=== PATIENT | female | born 1995 | race Hispanic/Latino ===

== ENCOUNTER 2017-10-26 17:09 | Emergency (ER) | payer OTHER, MEDICAID, SELFPAY ==
[2017-10-26 17:27] VITALS: BP 106/61; PULSE 94; RESP 20; TEMP 37.2; O2SAT 98
[2017-10-26 17:53] LABS: Appearance Urine UA CLEAR; Bilirubin Urine UA NEGATIVE (NEGATIVE); Color Urine UA YELLOW; Glucose Urine UA NEGATIVE (Normal); Ketones Urine UA NEGATIVE (NEGATIVE); Leukocyte Esterase Urine UA NEGATIVE (NEGATIVE); Nitrite Urine UA Negative (Negative); Occult Blood Urine UA 3+ (Negative); Protein Urine UA NEGATIVE (Negative); Specific Gravity Urine UA 1.025 (1.000-1.035); Urobilinogen Urine UA 0.2 E.U./dL (0.2)
[2017-10-26 18:04] LABS: RBC Urine 1-5/HPF (0-5/HPF)
[2017-10-26 18:05] LABS: Amorphous Sediment Urine 2+; Bacteria Urine Occasional (0-1); Culture Indicated Urine Specimen Cultured; Squamous Epithelial Cell Urine 1-5 /HPF; WBC Urine 1-5/HPF (0-5/HPF)
--- NOTE | 2017-10-26 18:22 | DI.US.S_ITS ---
PROCEDURE: US OB <= 14 WEEKS FETUS INDICATIONS: vaginal bleeding 6 weeks . OUTSIDE/PRIOR DATING DATA: Last menstrual period (LMP): Unknown. LMP-based estimated date of delivery (SANTOS): Not applicable.. First dating scan (date and location): [facility], 10/26/17 (current exam used as first dating scan rather than comparison of 10/20/2017, as the comparison scan is indeterminate). Estimated date of delivery (SANTOS) from first dating scan: 06/20/18. TECHNIQUE: Real-time scanning was performed of the fetus and maternal pelvic organs, with image documentation. Endovaginal scanning was also performed to better visualize the fetus and maternal ovaries. COMPARISON: [facility], US, US OB < 14 WEEKS + OB TRANSVAG, 10/20/2017, 16:25. FINDINGS: Embryo: An intrauterine gestational sac is identified and measures 1.3 x 1.5 x 1.0 cm, for a mean gestational sac diameter of 1.3 cm (equivalent to 6 weeks 1 day). A yolk sac is identified. cardiac activity was not identified, but this remains an early exam. There is a 1.6 x 1.0 x 0.8 cm area of hypoechogenicity consistent with subchorionic hemorrhage. Measurement variability in dating: +/- 4 weeks by LMP, +/- 7 days by mean sac diameter (use before 6 weeks gestation if crown-rump length not able to be measured), +/- 5 days by crown-rump length (up to 8 weeks 6 days gestation), +/- 7 days by crown-rump length (up to 13 weeks 6 days gestation). Maternal organs: Ovaries are not well-seen on this exam. Limited images through the kidneys demonstrate no hydronephrosis. IMPRESSION: #1. Single intrauterine demonstrating a mean gestational sac diameter of 1.3 cm (equivalent to a composite gestational age of 6 weeks 1 day). A yolk sac is identified. heart beat was not identified on today's exam, but this is not unexpected given the early gestational age. Recommend continued followup pelvic ultrasound and correlation with beta-hCG levels. #2. 1.5 cm subchorionic hemorrhage, new from 10/20/17. These findings were discussed by the french comber with the ordering provider Dr. Allan at the time of the exam. Dictated by: Morales Weiner M.D. on 10/26/2017 at 20:48 Approved by: Morales Weiner M.D. on 10/26/2017 at 21:00
[2017-10-26 18:29] VITALS: BP 108/61; PULSE 76; RESP 16; TEMP 36.5; O2SAT 100
--- NOTE | 2017-10-26 18:42 | ED.PREGNANCY ---
HPI - General Chief complaint: Vaginal Bleeding Stated complaint: 6 WKS ,CRAMPING AND BLEEDING,ARM NUMBNESS Time Seen by Provider: 10/26/17 18:08 Source: patient Mode of arrival: ambulatory Limitations: no limitations History of Present Illness HPI Narrative: Patient is a 22-year-old female presents with vaginal bleeding. She says she is about 6-7 weeks . She was having some mild spotting for the last week on only when she would wipe. However the bleeding has come more today. This morning she was a little dizzy and lightheaded she never passed out she started feeling better. However the bleeding got the more heavy today. She is a She was seen at [facility] already for this . MD Complaint: abdominal pain and vaginal bleeding Patient : Yes Related Data Previous Rx's Medication Instructions Recorded amoxicillin 500 mg PO TID 5 Days #15 cap 10/26/17 Allergies Allergy/AdvReac Type Severity Reaction Status Date / Time No Known Drug Allergies Allergy Verified 10/26/17 17:33 Review of Systems Review of Systems All systems reviewed & are unremarkable except as noted in HPI and below Constitutional Denies chills, Denies fever(s), Denies lethargy and Denies weakness Cardiovascular Denies chest pain, Denies leg edema, Reports lightheadedness, Denies palpitations and Denies dyspnea Respiratory Denies cough and Denies dyspnea Gastrointestinal Gastrointestinal: Reports abdominal pain and Denies vomiting Genitourinary Reports as per HPI and Reports abnormal vaginal bleeding Musculoskeletal Denies back pain, Denies muscle weakness, Denies numbness and Denies tingling Integumentary/Breasts Denies pruritus, Denies erythema, Denies rash and Denies wounds Neurologic Denies numbness, Denies tingling and Denies weakness Endocrine Denies palpitations Hematologic/Lymphatic Denies easy bruising PMFSH - Past Medical History Medical history: Reports no medical history Surgical history: Reports no surgical history Patient : Yes Family history: Reports no significant family history Exam Initial Vital Signs Initial Vital Signs: Vital Signs Temperature 99.0 F 10/26/17 17:27 Pulse Rate 94 H 10/26/17 17:27 Respiratory Rate 20 10/26/17 17:27 Blood Pressure 106/61 10/26/17 17:27 Pulse Oximetry 98 10/26/17 17:27 GENERAL: Well-appearing, well-nourished and in no acute distress. HEENT: Head atraumatic,EOMI, pupils reactive CARDIOVASCULAR: Regular rate and rhythm without murmurs, rubs or gallops. RESPIRATORY: Breath sounds equal bilaterally, no wheezes rales or rhonchi. ABDOMEN: Soft, mild suprapubic tenderness without guarding or rebound EXTREMITIES: Normal range of motion, no clubbing or edema. Neurovascularly intact NEUROLOGICAL: Alert and oriented x4.Normal gait and speech. SKIN: Warm, dry, no laceration, no petechiae, no rashes or lesions. Course Orders Ordered: ED Orders 10/26/17 18:22 US OB <= 14 weeks fetus Stat 10/26/17 18:35 ABO RH Type Stat Complete Blood Count AUTO DIFF Stat Comprehensive Metabolic Panel Stat HCG Quantitative Stat Discontinued Medications Sodium Chloride (Normal Saline 0.9%) 1,000 mls @ 1,000 mls/hr IV BOLUS ONE Stop: 10/26/17 19:21 Last Infusion: 10/26/17 20:55 Dose: 0 mls/hr Admin: 10/26/17 18:53 Dose: 1,000 mls/hr Vital Signs - 8 hr 10/26/17 19:40 10/26/17 21:03 Temperature 98.8 F Pulse Rate 82 75 Respiratory Rate 16 16 Blood Pressure [Left Arm] 99/61 99/58 L Pulse Oximetry 100 100 MDM - OB/Uterine Contractions Lab Data Attestation: I reviewed the patient's lab results. Result diagrams: 10/26/17 18:35 10/26/17 18:35 Lab Results 10/26/17 10/26/17 10/26/17 Range/Units 17:30 18:35 18:35 WBC 7.1 (4.5-11.0) X10^3/uL RBC 4.65 (4.0-5.2) X10^6/uL Hgb 14.2 (12.0-16.0) g/dL Hct 40.3 (36-46) % MCV 86.8 (80-100) fL MCH 30.5 (26-34) PG MCHC 35.1 (30-36) % RDW 13.3 (11.6-14.8) % Plt Count 238 (150-400) X10^3/uL Neut % (Auto) 67.3 (50-75) % Lymph % (Auto) 19.1 L (25-40) % [place] % (Auto) 10.9 (3-14) % Eos % (Auto) 2.1 (2-4) % Baso % (Auto) 0.6 (0-2) % Neut # (Auto) 4800 (4921-2351) /uL Sodium 139 (137-145) mmol/L Potassium 3.7 (3.4-5.1) mmol/L Chloride 106 (98-107) mmol/L Carbon Dioxide 23 (22-32) mmol/L BUN 6 L (7-17) mg/dL Creatinine 0.40 L (0.52-1.04) mg/dL Estimated GFR > 60.0 (>60) mL/min BUN/Creatinine Ratio 15.0 (6-22) Glucose 97 (70-100) mg/dL Calcium 9.0 (8.4-10.2) mg/dL Total Bilirubin 0.5 (0.2-1.3) mg/dL AST 30 (14-36) IU/L ALT 30 (9-52) IU/L Alkaline Phosphatase 62 (38-126) U/L Total Protein 6.6 (6.3-8.2) g/dL Albumin 3.9 (3.5-5.0) g/dL Globulin 2.7 (1.7-4.1) g/dL Albumin/Globulin Ratio 1.4 (1.0-2.8) HCG, Quant 79927 mIU/mL Urine Color Yellow Urine Appearance Clear Urine pH 6.0 (4.5-8.0) Ur Specific [place] 1.025 (1.000-1.035) Urine Protein Negative (Negative) Urine Glucose (UA) Negative (Normal) g/dL Urine Ketones Negative (NEGATIVE) Urine Occult Blood 3+ H (Negative) Urine Nitrate Negative (Negative) Urine Bilirubin Negative (NEGATIVE) Urine Urobilinogen 0.2 (0.2) E.U./dL Ur Leukocyte Esterase Negative (NEGATIVE) Urine RBC 1-5/hpf (0-5/HPF) Urine WBC 1-5/hpf (0-5/HPF) Ur Squamous Epith Cells 1-5 /hpf Amorphous Sediment 2+ Urine Bacteria Occasional (0-1) (None) Ur Culture Indicated? Specimen cultured Micro UA Comment Not Reportable Blood Type 10/26/17 Range/Units 18:35 WBC (4.5-11.0) X10^3/uL RBC (4.0-5.2) X10^6/uL Hgb (12.0-16.0) g/dL Hct (36-46) % MCV (80-100) fL MCH (26-34) PG MCHC (30-36) % RDW (11.6-14.8) % Plt Count (150-400) X10^3/uL Neut % (Auto) (50-75) % Lymph % (Auto) (25-40) % [place] % (Auto) (3-14) % Eos % (Auto) (2-4) % Baso % (Auto) (0-2) % Neut # (Auto) (2348-1991) /uL Sodium (137-145) mmol/L Potassium (3.4-5.1) mmol/L Chloride (98-107) mmol/L Carbon Dioxide (22-32) mmol/L BUN (7-17) mg/dL Creatinine (0.52-1.04) mg/dL Estimated GFR (>60) mL/min BUN/Creatinine Ratio (6-22) Glucose (70-100) mg/dL Calcium (8.4-10.2) mg/dL Total Bilirubin (0.2-1.3) mg/dL AST (14-36) IU/L ALT (9-52) IU/L Alkaline Phosphatase (38-126) U/L Total Protein (6.3-8.2) g/dL Albumin (3.5-5.0) g/dL Globulin (1.7-4.1) g/dL Albumin/Globulin Ratio (1.0-2.8) HCG, Quant mIU/mL Urine Color Urine Appearance Urine pH (4.5-8.0) Ur Specific [place] (1.000-1.035) Urine Protein (Negative) Urine Glucose (UA) (Normal) g/dL Urine Ketones (NEGATIVE) Urine Occult Blood (Negative) Urine Nitrate (Negative) Urine Bilirubin (NEGATIVE) Urine Urobilinogen (0.2) E.U./dL Ur Leukocyte Esterase (NEGATIVE) Urine RBC (0-5/HPF) Urine WBC (0-5/HPF) Ur Squamous Epith Cells Amorphous Sediment Urine Bacteria (None) Ur Culture Indicated? Micro UA Comment Blood Type O Positive Imaging Data OB <14 wks: Radiologist's impression: PROCEDURE: US OB <= 14 WEEKS FETUS INDICATIONS: vaginal bleeding 6 weeks . OUTSIDE/PRIOR DATING DATA: Last menstrual period (LMP): Unknown. LMP-based estimated date of delivery (SANTOS): Not applicable.. First dating scan (date and location): [facility], 10/26/17 (current exam used as first dating scan rather than comparison of 10/20/2017, as the comparison scan is indeterminate). Estimated date of delivery (SANTOS) from first dating scan: 06/20/18. TECHNIQUE: Real-time scanning was performed of the fetus and maternal pelvic organs, with image documentation. Endovaginal scanning was also performed to better visualize the fetus and maternal ovaries. COMPARISON: [facility], US, US OB < 14 WEEKS + OB TRANSVAG, 10/20/2017, 16:25. FINDINGS: Embryo: An intrauterine gestational sac is identified and measures 1.3 x 1.5 x 1.0 cm, for a mean gestational sac diameter of 1.3 cm (equivalent to 6 weeks 1 day). A yolk sac is identified. cardiac activity was not identified, but this remains an early exam. There is a 1.6 x 1.0 x 0.8 cm area of hypoechogenicity consistent with subchorionic hemorrhage. Measurement variability in dating: +/- 4 weeks by LMP, +/- 7 days by mean sac diameter (use before 6 weeks gestation if crown-rump length not able to be measured), +/- 5 days by crown-rump length (up to 8 weeks 6 days gestation), +/- 7 days by crown-rump length (up to 13 weeks 6 days gestation). Maternal organs: Ovaries are not well-seen on this exam. Limited images through the kidneys demonstrate no hydronephrosis. IMPRESSION: #1. Single intrauterine demonstrating a mean gestational sac diameter of 1.3 cm (equivalent to a composite gestational age of 6 weeks 1 day). A yolk sac is identified. heart beat was not identified on today's exam, but this is not unexpected given the early gestational age. Recommend continued followup pelvic ultrasound and correlation with beta-hCG levels. #2. 1.5 cm subchorionic hemorrhage, new from 10/20/17. These findings were discussed by the dielectric embossing machine operator with the ordering provider Dr. Allan at the time of the exam. Dictated by: Morales Weiner M.D. on 10/26/2017 at 20:48 MDM Narrative Medical decision making narrative: Discussed need for follow-up on this week with patient and has been. Both understand and agree. Discharge Plan Departure Patient Disposition: Home, Self-Care Clinical Impression: , spontaneous threatened, UTI (urinary tract infection) Discharge Date/Time: 10/26/17 21:22 Interventions: ED Discharge Assessment Last Done: 10/26/17 21:22 Instructions: Threatened Activity Restrictions/Additional Instructions: [id number] to be rechecked on Friday *You have been diagnosed with threatened , UTI *What to do: Pelvic rest *Continue to take medications as directed -amoxicillin 1 tablet 3 times a day for 5 days *Follow up with your BAG VALVER on Friday at [facility] *Return to ER if you should have increasing abdominal pain, increasing bleeding or any new, worsening or concerning symptoms Prescriptions: New amoxicillin 500 mg capsule 500 mg PO TID 5 Days Qty: 15 RF: 0
[2017-10-26 18:47] LABS: Add Manual Diff / Slide Review NO; Basophils Percent Auto 0.6 % (0-2); Eosinophils Percent Auto 2.1 % (2-4); Hematocrit 40.3 % (36-46); Hemoglobin 14.2 g/dL (12.0-16.0); Lymphocytes Percent Auto 19.1 % (25-40); Mean Corpuscular HGB Conc 35.1 % (30-36); Mean Corpuscular Hemoglobin 30.5 PG (26-34); Mean Corpuscular Volume 86.8 fL (80-100); Monocytes Percent Auto 10.9 % (3-14); Neutrophils Absolute Auto 4800 /uL (3000-5900); Neutrophils Percent Auto 67.3 % (50-75); Platelet Count 238 X10^3/uL (150-400); Red Blood Cell Count 4.65 X10^6/uL (4.0-5.2); Red Cell Distribution Width 13.3 % (11.6-14.8); White Blood Cell Count 7.1 X10^3/uL (4.5-11.0)
--- NOTE | 2017-10-26 18:49 | ED_ITS ---
HPI - General Chief complaint: Vaginal Bleeding Stated complaint: 6 WKS ,CRAMPING AND BLEEDING,ARM NUMBNESS Time Seen by Provider: 10/26/17 18:08 Source: patient Mode of arrival: ambulatory Limitations: no limitations History of Present Illness HPI Narrative: Patient is a 22-year-old female presents with vaginal bleeding. She says she is about 6-7 weeks . She was having some mild spotting for the last week on only when she would wipe. However the bleeding has come more today. This morning she was a little dizzy and lightheaded she never passed out she started feeling better. However the bleeding got the more heavy today. She is a She was seen at [facility] already for this . MD Complaint: abdominal pain and vaginal bleeding Patient : Yes Related Data Previous Rx's Medication Instructions Recorded amoxicillin 500 mg PO TID 5 Days #15 cap 10/26/17 Allergies Allergy/AdvReac Type Severity Reaction Status Date / Time No Known Drug Allergies Allergy Verified 10/26/17 17:33 Review of Systems Review of Systems All systems reviewed & are unremarkable except as noted in HPI and below Constitutional Denies chills, Denies fever(s), Denies lethargy and Denies weakness Cardiovascular Denies chest pain, Denies leg edema, Reports lightheadedness, Denies palpitations and Denies dyspnea Respiratory Denies cough and Denies dyspnea Gastrointestinal Gastrointestinal: Reports abdominal pain and Denies vomiting Genitourinary Reports as per HPI and Reports abnormal vaginal bleeding Musculoskeletal Denies back pain, Denies muscle weakness, Denies numbness and Denies tingling Integumentary/Breasts Denies pruritus, Denies erythema, Denies rash and Denies wounds Neurologic Denies numbness, Denies tingling and Denies weakness Endocrine Denies palpitations Hematologic/Lymphatic Denies easy bruising PMFSH - Past Medical History Medical history: Reports no medical history Surgical history: Reports no surgical history Patient : Yes Family history: Reports no significant family history Exam Initial Vital Signs Initial Vital Signs: Vital Signs Temperature 99.0 F 10/26/17 17:27 Pulse Rate 94 H 10/26/17 17:27 Respiratory Rate 20 10/26/17 17:27 Blood Pressure 106/61 10/26/17 17:27 Pulse Oximetry 98 10/26/17 17:27 GENERAL: Well-appearing, well-nourished and in no acute distress. HEENT: Head atraumatic,EOMI, pupils reactive CARDIOVASCULAR: Regular rate and rhythm without murmurs, rubs or gallops. RESPIRATORY: Breath sounds equal bilaterally, no wheezes rales or rhonchi. ABDOMEN: Soft, mild suprapubic tenderness without guarding or rebound EXTREMITIES: Normal range of motion, no clubbing or edema. Neurovascularly intact NEUROLOGICAL: Alert and oriented x4.Normal gait and speech. SKIN: Warm, dry, no laceration, no petechiae, no rashes or lesions. Course Orders Ordered: ED Orders 10/26/17 18:22 US OB <= 14 weeks fetus Stat 10/26/17 18:35 ABO RH Type Stat Complete Blood Count AUTO DIFF Stat Comprehensive Metabolic Panel Stat HCG Quantitative Stat Discontinued Medications Sodium Chloride (Normal Saline 0.9%) 1,000 mls @ 1,000 mls/hr IV BOLUS ONE Stop: 10/26/17 19:21 Last Infusion: 10/26/17 20:55 Dose: 0 mls/hr Admin: 10/26/17 18:53 Dose: 1,000 mls/hr Vital Signs - 8 hr 10/26/17 19:40 10/26/17 21:03 Temperature 98.8 F Pulse Rate 82 75 Respiratory Rate 16 16 Blood Pressure [Left Arm] 99/61 99/58 L Pulse Oximetry 100 100 MDM - OB/Uterine Contractions Lab Data Attestation: I reviewed the patient's lab results. Result diagrams: 10/26/17 18:35 10/26/17 18:35 Lab Results 10/26/17 10/26/17 10/26/17 Range/Units 17:30 18:35 18:35 WBC 7.1 (4.5-11.0) X10^3/uL RBC 4.65 (4.0-5.2) X10^6/uL Hgb 14.2 (12.0-16.0) g/dL Hct 40.3 (36-46) % MCV 86.8 (80-100) fL MCH 30.5 (26-34) PG MCHC 35.1 (30-36) % RDW 13.3 (11.6-14.8) % Plt Count 238 (150-400) X10^3/uL Neut % (Auto) 67.3 (50-75) % Lymph % (Auto) 19.1 L (25-40) % [place] % (Auto) 10.9 (3-14) % Eos % (Auto) 2.1 (2-4) % Baso % (Auto) 0.6 (0-2) % Neut # (Auto) 4800 (7734-4883) /uL Sodium 139 (137-145) mmol/L Potassium 3.7 (3.4-5.1) mmol/L Chloride 106 (98-107) mmol/L Carbon Dioxide 23 (22-32) mmol/L BUN 6 L (7-17) mg/dL Creatinine 0.40 L (0.52-1.04) mg/dL Estimated GFR > 60.0 (>60) mL/min BUN/Creatinine Ratio 15.0 (6-22) Glucose 97 (70-100) mg/dL Calcium 9.0 (8.4-10.2) mg/dL Total Bilirubin 0.5 (0.2-1.3) mg/dL AST 30 (14-36) IU/L ALT 30 (9-52) IU/L Alkaline Phosphatase 62 (38-126) U/L Total Protein 6.6 (6.3-8.2) g/dL Albumin 3.9 (3.5-5.0) g/dL Globulin 2.7 (1.7-4.1) g/dL Albumin/Globulin Ratio 1.4 (1.0-2.8) HCG, Quant 80617 mIU/mL Urine Color Yellow Urine Appearance Clear Urine pH 6.0 (4.5-8.0) Ur Specific [place] 1.025 (1.000-1.035) Urine Protein Negative (Negative) Urine Glucose (UA) Negative (Normal) g/dL Urine Ketones Negative (NEGATIVE) Urine Occult Blood 3+ H (Negative) Urine Nitrate Negative (Negative) Urine Bilirubin Negative (NEGATIVE) Urine Urobilinogen 0.2 (0.2) E.U./dL Ur Leukocyte Esterase Negative (NEGATIVE) Urine RBC 1-5/hpf (0-5/HPF) Urine WBC 1-5/hpf (0-5/HPF) Ur Squamous Epith Cells 1-5 /hpf Amorphous Sediment 2+ Urine Bacteria Occasional (0-1) (None) Ur Culture Indicated? Specimen cultured Micro UA Comment Not Reportable Blood Type 10/26/17 Range/Units 18:35 WBC (4.5-11.0) X10^3/uL RBC (4.0-5.2) X10^6/uL Hgb (12.0-16.0) g/dL Hct (36-46) % MCV (80-100) fL MCH (26-34) PG MCHC (30-36) % RDW (11.6-14.8) % Plt Count (150-400) X10^3/uL Neut % (Auto) (50-75) % Lymph % (Auto) (25-40) % [place] % (Auto) (3-14) % Eos % (Auto) (2-4) % Baso % (Auto) (0-2) % Neut # (Auto) (3603-9765) /uL Sodium (137-145) mmol/L Potassium (3.4-5.1) mmol/L Chloride (98-107) mmol/L Carbon Dioxide (22-32) mmol/L BUN (7-17) mg/dL Creatinine (0.52-1.04) mg/dL Estimated GFR (>60) mL/min BUN/Creatinine Ratio (6-22) Glucose (70-100) mg/dL Calcium (8.4-10.2) mg/dL Total Bilirubin (0.2-1.3) mg/dL AST (14-36) IU/L ALT (9-52) IU/L Alkaline Phosphatase (38-126) U/L Total Protein (6.3-8.2) g/dL Albumin (3.5-5.0) g/dL Globulin (1.7-4.1) g/dL Albumin/Globulin Ratio (1.0-2.8) HCG, Quant mIU/mL Urine Color Urine Appearance Urine pH (4.5-8.0) Ur Specific [place] (1.000-1.035) Urine Protein (Negative) Urine Glucose (UA) (Normal) g/dL Urine Ketones (NEGATIVE) Urine Occult Blood (Negative) Urine Nitrate (Negative) Urine Bilirubin (NEGATIVE) Urine Urobilinogen (0.2) E.U./dL Ur Leukocyte Esterase (NEGATIVE) Urine RBC (0-5/HPF) Urine WBC (0-5/HPF) Ur Squamous Epith Cells Amorphous Sediment Urine Bacteria (None) Ur Culture Indicated? Micro UA Comment Blood Type O Positive Imaging Data OB <14 wks: Radiologist's impression: PROCEDURE: US OB <= 14 WEEKS FETUS INDICATIONS: vaginal bleeding 6 weeks . OUTSIDE/PRIOR DATING DATA: Last menstrual period (LMP): Unknown. LMP-based estimated date of delivery (SANTOS): Not applicable.. First dating scan (date and location): [facility], 10/26/17 (current exam used as first dating scan rather than comparison of 10/20/2017, as the comparison scan is indeterminate). Estimated date of delivery (SANTOS) from first dating scan: 06/20/18. TECHNIQUE: Real-time scanning was performed of the fetus and maternal pelvic organs, with image documentation. Endovaginal scanning was also performed to better visualize the fetus and maternal ovaries. COMPARISON: [facility], US, US OB < 14 WEEKS + OB TRANSVAG, 2017, 16:25. FINDINGS: Embryo: An intrauterine gestational sac is identified and measures 1.3 x 1.5 x 1.0 cm, for a mean gestational sac diameter of 1.3 cm (equivalent to 6 weeks 1 day). A yolk sac is identified. cardiac activity was not identified, but this remains an early exam. There is a 1.6 x 1.0 x 0.8 cm area of hypoechogenicity consistent with subchorionic hemorrhage. Measurement variability in dating: +/- 4 weeks by LMP, +/- 7 days by mean sac diameter (use before 6 weeks gestation if crown-rump length not able to be measured), +/ - 5 days by crown-rump length (up to 8 weeks 6 days gestation), +/- 7 days by crown-rump length (up to 13 weeks 6 days gestation). Maternal organs: Ovaries are not well-seen on this exam. Limited images through the kidneys demonstrate no hydronephrosis. IMPRESSION: #1. Single intrauterine demonstrating a mean gestational sac diameter of 1.3 cm (equivalent to a composite gestational age of 6 weeks 1 day). A yolk sac is identified. heart beat was not identified on today's exam, but this is not unexpected given the early gestational age. Recommend continued followup pelvic ultrasound and correlation with beta-hCG levels. #2. 1.5 cm subchorionic hemorrhage, new from 10/20/17. These findings were discussed by the housecleaner floor with the ordering provider Dr. Allan at the time of the exam. Dictated by: Morales Weiner M.D. on 10/26/2017 at 20:48 MDM Narrative Medical decision making narrative: Discussed need for follow-up on this week with patient and has been. Both understand and agree. Discharge Plan Departure Patient Disposition: Home, Self-Care Clinical Impression: , spontaneous threatened, UTI (urinary tract infection) Discharge Date/Time: 10/26/17 21:22 Interventions: ED Discharge Assessment Last Done: 10/26/17 21:22 Instructions: Threatened Activity Restrictions/Additional Instructions: [id number] to be rechecked on Friday *You have been diagnosed with threatened , UTI *What to do: Pelvic rest *Continue to take medications as directed -amoxicillin 1 tablet 3 times a day for 5 days *Follow up with your DENTISTRY TEACHER on Friday at [facility] *Return to ER if you should have increasing abdominal pain, increasing bleeding or any new, worsening or concerning symptoms Prescriptions: New amoxicillin 500 mg capsule 500 mg PO TID 5 Days Qty: 15 RF: 0
[2017-10-26] MEDS: SODIUM CHLORIDE 0.9% 1,000 ML 1000 ML IV (18:53)
[2017-10-26 18:58] LABS: Alanine Aminotransferase 30 IU/L (9-52); Albumin 3.9 g/dL (3.5-5.0); Albumin Globulin Ratio 1.4 (1.0-2.8); Alkaline Phosphatase 62 U/L (38-126); Aspartate Aminotransferase 30 IU/L (14-36); Bilirubin Total 0.5 mg/dL (0.2-1.3); Blood Urea Nitrogen 6 mg/dL (7-17); Carbon Dioxide 23 mmol/L (22-32); Chloride 106 mmol/L (98-107); Estimated Glomerular Filt Rate > 60.0 mL/min (>60); Globulin 2.7 g/dL (1.7-4.1); Glucose 97 mg/dL (70-100); HEMOLYSIS 17 (0-50); Potassium 3.7 mmol/L (3.4-5.1); Sodium 139 mmol/L (137-145); Total Protein 6.6 g/dL (6.3-8.2)
[2017-10-26 19:15] LABS: HCG Quantitative /Beta subunit 14958 mIU/mL
[2017-10-26 19:40] VITALS: BP 99/61; PULSE 82; RESP 16; O2SAT 100
[2017-10-26 21:03] VITALS: BP 99/58; PULSE 75; RESP 16; TEMP 37.1; O2SAT 100
== END 2017-10-26 21:22 | disposition home or self-care (01) ==
PROVIDERS: Emergency Medicine; Emergency Provider Emergency Medicine
DX: O20.0 Threatened abortion (principal); O23.41 Unspecified infection of urinary tract in pregnancy, first trimester; Z3A.01 Less than 8 weeks gestation of pregnancy
CPT/HCPCS: 76801; 76817; 80053; 81003; 81015; 84702; 85025; 86900; 86901; 87086; 96360; 96361; 99283; 99284